=== PATIENT | male | born 1985 | race Caucasian/White ===

== ENCOUNTER 2017-10-09 19:53 | Emergency (ER) | payer SELFPAY ==
[2017-10-09 20:15] VITALS: BP 138/68; PULSE 120; RESP 18; TEMP 99.9; O2SAT 100
[2017-10-10 00:12] VITALS: PULSE 73; TEMP 98.3
--- NOTE | 2017-10-10 00:14 | PD ---
HPI Chief Complaint: Medical Clearance Time Seen by Provider: 00:09 Travel History International Travel<30 days: No Contact w/Intl Traveler<30days: No Traveled to known affect area: No History of Present Illness HPI This is a 32-year-old male with history of IV drug use who presents for evaluation of an abscess in the right arm. Symptoms started 3 days ago. He reports pain at the site of the abscess, throbbing, constant, aggravated by palpation with no relieving factors. He reports that recently he relapsed and started using heroin again he has been injecting in his arms. He denies any fevers, chills, chest pain, shortness of breath, myalgias, nausea, vomiting. He has no other complaints. FOR[facility]LY [facility] Past Medical History Medical History: Denies Significant Hx Diminished Hearing: No Immunizations Current: Yes Past Surgical History Other Surgery: Yes (HERNIA REPAIR) Social History Alcohol Use: No Tobacco Use: Yes (1PPD) Substance Use: Yes (HEROIN) Allergies-Medications (Allergen,Severity, Reaction): Coded Allergies: No Known Allergies (Unverified , 10/09/17) Reported Meds & Prescriptions Reported Meds & Active Scripts Active Keflex (Cephalexin) 500 Mg Cap 500 Mg PO Q8H Bactrim DS (Sulfamethoxazole-Trimethoprim) 800-160 Mg Tab 1 Tab PO BID Review of Systems Except as stated in HPI: all other systems reviewed are Neg Physical Exam Narrative GENERAL: Well-developed well-nourished male no acute distress SKIN: Warm and dry. 3 cm fluctuant abscess right antecubital space. HEAD: Atraumatic. Normocephalic. EYES: Pupils equal and round. No scleral icterus. No injection or drainage. ENT: No nasal bleeding or discharge. Mucous membranes pink and moist. NECK: Trachea midline. No JVD. CARDIOVASCULAR: Regular rate and rhythm. No murmur appreciated. RESPIRATORY: No accessory muscle use. Clear to auscultation. Breath sounds equal bilaterally. GASTROINTESTINAL: Abdomen soft, non-tender, nondistended. Hepatic and splenic margins not palpable. MUSCULOSKELETAL: No obvious deformities. Skin as noted above. NEUROLOGICAL: Awake and alert. No obvious cranial nerve deficits. Motor grossly within normal limits. Normal speech. Data Data Last Documented VS Vital Signs Date Time Temp Pulse Resp B/P (MAP) Pulse Ox O2 Delivery O2 Flow Rate FiO2 10/10/17 00:12 98.3 73 10/09/17 20:15 18 138/68 (91) 100 Orders Orders Lidocai-Epi 1%-1:100,000 Inj (Xylocaine- (10/10/17 00:15) Wound Culture And Gram Stain (10/10/17 00:13) Lidocai-Epi 1%-1:100,000 Inj (Xylocaine- (10/10/17 00:15) Sulfamet-Trimeth Ds 800-160 Mg (Bactrim (10/10/17 00:45) Cephalexin (Keflex) (10/10/17 00:45) Ed Discharge Order (10/10/17 00:34) [facility] Medical Decision Making Medical Screen Exam Complete: Yes Emergency Medical Condition: Yes Medical Record Reviewed: Yes Differential Diagnosis Abscess, cellulitis, infected cyst Narrative Course Examination is consistent with a superficial abscess in the right antecubital region. Plan is for incision and drainage for which he verbally consents. Wound culture obtained. The patient will be started on Bactrim and Keflex pending wound culture results. Procedures Procedure Narrative INCISION AND DRAINAGE OF ABSCESS: The area was prepped and was sterilely draped. A subcutaneous wheal of 1% Xylocaine with epinephrine with a total number 10 mL was used to anesthetize the area. The area was properly anesthetized. A number [-] scalpel was used to make a [-] -cm incision across the area of the abscess. Cultures were obtained. The abscess was drained an irrigated with normal saline. Diagnosis Primary Impression: Abscess of right arm Additional Instructions: Medication as prescribed, follow-up with primary care physician, return for any emergent medical conditions. Med/Other Pt SpecificInfo: Prescription(s) given, Wound Care Scripts Cephalexin (Keflex) 500 Mg Cap 500 MG PO Q8H for Infection, #30 CAP 0 Refills Prov: Justin Joseph MD 10/10/17 Sulfamethoxazole-Trimethoprim (Bactrim DS) 800-160 Mg Tab 1 TAB PO BID for Infection, #20 TAB 0 Refills Prov: Justin Joseph MD 10/10/17 Disposition: 01 DISCHARGE HOME Condition: Stable Ferdinand Cardenas Oct 10, 2017 00:14
[2017-10-10] MEDS ORDERED: LIDOCAINE 1%/EPINEPHrine 1:100,000 SOLN 50 ML VIAL INFIL ONE (00:15)
[2017-10-10] MEDS ORDERED: LIDOCAINE 1%/EPINEPHrine 1:100,000 SOLN 50 ML VIAL ONE (00:15)
[2017-10-10] MEDS ORDERED: BACT800T5 PO (00:26)
[2017-10-10] MEDS ORDERED: CEPH-460 PO (00:26)
[2017-10-10] MEDS ORDERED: SULFAMETHOXAZOLE-TRIMETHOPRIM DS 800-160 MG TAB PO ONE (00:45)
[2017-10-10] MEDS ORDERED: CEPHALEXIN MONOHYDRATE 500 MG CAP PO ONE (00:45)
== END 2017-10-10 01:14 | disposition home or self-care (01) ==
LOC: NEPD 19:53
DX: L02.413 Cutaneous abscess of right upper limb (principal); B96.5 Pseudomonas (aeruginosa) (mallei) (pseudomallei) as the cause of diseases classified elsewhere; F11.90 Opioid use, unspecified, uncomplicated; F17.210 Nicotine dependence, cigarettes, uncomplicated
CPT/HCPCS: 10060; 87070; 87077; 87186